=== PATIENT | female | born 1990 | race Caucasian/White ===

== ENCOUNTER 2018-10-17 20:11 | Emergency (ER) | payer OTHER, SELFPAY ==
[~2018-10-17] VITALS: Ht 165.1 cm; Wt 81.6 kg
[2018-10-17 20:15] VITALS: BP 130/73
[2018-10-17 22:48] LABS: BASO % 1 % (0-3); EOS % 1 % (0-3); HEMATOCRIT 35.2 % (36.0-47.0); HEMOGLOBIN 12.3 g/dL (12.0-15.5); LYMPH # 1.8 x10^3/uL (1.0-4.8); LYMPH % 24 % (24-48); MEAN CORPUSCULAR HEMOGLOBIN 33 pg (25-35); MEAN CORPUSCULAR HGB CONC 35 g/dL (31-37); MEAN CORPUSCULAR VOLUME 94 fL (79-100); MONO # 0.5 x10^3/uL (0.0-1.1); MONO % 6 % (0-9); NEUT % 68 % (31-73); PLATELET COUNT 202 x10^3/uL (140-400); RED BLOOD COUNT 3.74 x10^6/uL (3.50-5.40); RED CELL DISTRIBUTION WIDTH 13.4 % (11.5-14.5); WHITE BLOOD COUNT 7.3 x10^3/uL (4.0-11.0)
[2018-10-17] MEDS ORDERED: CLINDAMYCIN 600MG PREMIX 50 ML IV ONE (23:00)
[2018-10-17 23:02] LABS: CALCIUM 9.1 mg/dL (8.5-10.1); CREATININE 0.6 mg/dL (0.6-1.0); GFR 118.2; POTASSIUM 3.4 mmol/L (3.5-5.1)
[2018-10-17] MEDS ORDERED: CLIN300C8 PO (23:16)
--- NOTE | 2018-10-17 23:18 | PHYS DOC ---
Past Medical History Past Medical History: Anxiety (ARNOLD BANKS APRN) Past Surgical History: Tonsillectomy (ARNOLD BANKS APRN) Additional Information: non smoker Alcohol Use: Rarely Drug Use: None (ARNOLD BANKS APRN) Adult General Chief Complaint Chief Complaint: VAGINAL PROBLEM HPI HPI The patient is a 28-year-old female who presents today with a chief complaint of a Bartholin's cyst. The patient has had this cyst for 5 years. She's also had a cyst before that that was drained and then came back. She describes the pain as sharp stinging in throbbing and rates it 8 out of 10 in severity. She is 37 weeks and has a automated process operator that follows her. She states that recently the cyst has gotten worse. (ARNOLD BANKS APRN) Review of Systems Review of Systems Constitutional: Denies fever or chills [] Eyes: Denies change in visual acuity, redness, or eye pain [] HENT: Denies nasal congestion or sore throat [] Respiratory: Denies cough or shortness of breath [] Cardiovascular: Denies chest pain or syncope. GI: Denies abdominal pain, nausea, vomiting, or diarrhea [] : Denies dysuria or hematuria [] Musculoskeletal: Denies back pain or joint pain [] Integument: Denies rash or skin lesions. Reports cyst on her vagina. Neurologic: Denies headache, focal weakness or sensory changes [] Endocrine: Denies polyuria or polydipsia [] Complete systems were reviewed and found to be within normal limits, except as documented in this note. (ARNOLD BANKS APRN) Current Medications Current Medications Current Medications Medications (Trade) Dose Ordered Sig/Valentín Start Time Stop Time Status Last Admin Dose Admin Clindamycin Phosphate 50 ml @ 100 mls/hr 1X ONCE 10/17/18 23:00 10/17/18 23:29 DC 10/17/18 22:45 100 MLS/HR (DARRYN SON APRN) Allergies Allergies Allergies Coded Allergies Type Severity Reaction Last Updated Verified acetaminophen Allergy Severe "THROAT SWELLING" 10/17/18 Yes hydrocodone Allergy Severe "THROAT SWELLING" 10/17/18 Yes (DARRYN SON APRN) Physical Exam Physical Exam Constitutional: Well developed, well nourished, no acute distress, non-toxic appearance. [] HENT: Normocephalic, atraumatic, oropharynx moist, nose normal. [] Eyes: PERRLA, conjunctiva normal, no discharge. [] Neck: Normal range of motion, no tenderness, supple, no stridor. [] Cardiovascular:Heart rate regular rhythm, no murmur [] Lungs & Thorax: Bilateral breath sounds clear to auscultation [] Abdomen: Distended due to did not push on her belly. Skin: Warm, dry, no erythema, no rash. On vaginal exam there is a bartholin's cyst that has cross from the left labia to the right labia. It is swollen and between golf ball and softball size. Back: No tenderness, no CVA tenderness. [] Extremities: No tenderness, no cyanosis, no clubbing, ROM intact, no edema. [] Neurologic: Alert and oriented X 3, normal motor function, normal sensory function, no focal deficits noted. [] Psychologic: Affect normal, judgement normal, mood normal. [] (ARNOLD BANKS APRN) Current Patient Data Vital Signs Vital Signs Date Time Temp Pulse Resp B/P (MAP) Pulse Ox O2 Delivery O2 Flow Rate FiO2 10/17/18 20:15 98.7 79 18 130/73 (92) 97 Room Air 98.7 (REFFITTDARRYN APRN) Lab Values Laboratory Tests Test 10/17/18 22:35 White Blood Count 7.3 x10^3/uL (4.0-11.0) Red Blood Count 3.74 x10^6/uL (3.50-5.40) Hemoglobin 12.3 g/dL (12.0-15.5) Hematocrit 35.2 % (36.0-47.0) L Mean Corpuscular Volume 94 fL (79-100) Mean Corpuscular Hemoglobin 33 pg (25-35) Mean Corpuscular Hemoglobin Concent 35 g/dL (31-37) Red Cell Distribution Width 13.4 % (11.5-14.5) Platelet Count 202 x10^3/uL (140-400) Neutrophils (%) (Auto) 68 % (31-73) Lymphocytes (%) (Auto) 24 % (24-48) Monocytes (%) (Auto) 6 % (0-9) Eosinophils (%) (Auto) 1 % (0-3) Basophils (%) (Auto) 1 % (0-3) Neutrophils # (Auto) 5.0 x10^3uL (1.8-7.7) Lymphocytes # (Auto) 1.8 x10^3/uL (1.0-4.8) Monocytes # (Auto) 0.5 x10^3/uL (0.0-1.1) Eosinophils # (Auto) 0.0 x10^3/uL (0.0-0.7) Basophils # (Auto) 0.0 x10^3/uL (0.0-0.2) Sodium Level 136 mmol/L (136-145) Potassium Level 3.4 mmol/L (3.5-5.1) L Chloride Level 102 mmol/L (98-107) Carbon Dioxide Level 24 mmol/L (21-32) Anion Gap 10 (6-14) Blood Urea Nitrogen 9 mg/dL (7-20) Creatinine 0.6 mg/dL (0.6-1.0) Estimated GFR (Cockcroft-Gault) 118.2 Glucose Level 95 mg/dL (70-99) Calcium Level 9.1 mg/dL (8.5-10.1) Laboratory Tests 10/17/18 22:35 Laboratory Tests 10/17/18 22:35 (DARRYN SON APRN) EKG EKG [] (ARNOLD BANKS APRN) Radiology/Procedures Radiology/Procedures [] (ARNOLD BANKS APRN) Course & Med Decision Making Course & Med Decision Making Pertinent Labs and Imaging studies reviewed. (See chart for details) Discussed with patient my concern about draining the cyst with her being 37 weeks . Also discussed my concern of how it has crossed the midline and appears like it has become a very extensive cyst. Offered to get labs and admits patient to try IV antibiotics. Patient agreed to get labs but does not want to be admitted. Agreed to get one course of IV clindamycin in the ER and then go home on PO clindamycin and follow up with automated process operator. Labs are unremarkable. Turning patient over at this time to BIN Orellana. She has talked to patient and will call OB for further instructions. (ARNOLD BANKS APRN) Course & Med Decision Making Staff Physician Addendum: I was working in the ER during the course of this patient's visit. I was sharonda villalta for consultation as needed, but I was not directly involved in the care of this patient. (TEAGAN GARDNER MD) Dragon Disclaimer Dragon Disclaimer This electronic medical record was generated, in whole or in part, using a voice recognition dictation system. (ARNOLD BANKS APRN) Departure Departure Impression: Primary Impression: Bartholin's gland abscess Disposition: HOME, SELF-CARE Condition: STABLE Referrals: NO PCP (PCP) NICOLE NGO MD Patient Instructions: Bartholin's Cyst or Abscess Additional Instructions: Please continue to use warm compresses. Take the PO Clindamycin. Follow up with your mid- for further treatment. Scripts Clindamycin Hcl (CLINDAMYCIN HCL) 300 Mg Capsule 450 MG PO QID for 10 Days, #60 CAP Prov: ARNOLD BANKS APRN 10/17/18 ARNOLD BANKS APRN Oct 17, 2018 23:18 DARRYN SON APRN Oct 17, 2018 23:57 TEAGAN GARDNER MD October 18, 2018 00:18
== END 2018-10-18 00:20 | disposition home or self-care (01) ==
LOC: ER 20:11
DX: O34.83 Maternal care for other abnormalities of pelvic organs, third trimester (principal); O23.593 Infection of other part of genital tract in pregnancy, third trimester; O99.343 Other mental disorders complicating pregnancy, third trimester; F41.9 Anxiety disorder, unspecified; Z88.6 Allergy status to analgesic agent; Z88.5 Allergy status to narcotic agent; Z90.89 Acquired absence of other organs
CPT/HCPCS: 36415; 80048; 85025; 96365; 99284; J3490